=== PATIENT | male | born 1950 | race Caucasian/White ===

== ENCOUNTER → 2017-06-10 | Outpatient (CLI) | payer MEDICARE ==
[~2017-06-10] MED LIST: ALBU18HF INH; ALLO300T PO; AMOX1TAB12 PO; BUDE10.2 INH; CEPH-368 PO; CETI10CA PO; CETI10TA18 PO; CLOB15CR19 TP; CLON-364 PO; DULO60CA7 PO; ENOX100S5 SQ; ENOX40SY4 SC; FENT1PAT9 TD; FLUT16SP2 INH; FLUT1BLS INH; FURO80TA77 PO; GUAI-110 PO; IPRA0.2S35 INH; METH750T87 PO; MORP-52 PO; MULT-26 PO; MUPI15CR9 TP; OMEP40CA6 PO; OMNIPAQUE 350 MG/ML, 75ML BOTTLE ONE; OXYC15TA PO; POTA20TA14 PO; PRED1TAB PO; PREVASTATIN PO; SIMV40TA PO; TEST5GEL TD; TIOT18CA INH; TIZA4TAB PO; TRAZ100T15 PO; WARF5TAB PO; [UNRECOGNIZED DRUG - CODE] TP
== END | disposition home or self-care (01) ==
LOC: CFH 12:48
PROVIDERS: ATTEND Nurse Practitioner Family
DX: R59.9 Enlarged lymph nodes, unspecified (principal); R91.8 Other nonspecific abnormal finding of lung field; K44.9 Diaphragmatic hernia without obstruction or gangrene; R59.1 Generalized enlarged lymph nodes; J98.11 Atelectasis; R04.2 Hemoptysis
CPT/HCPCS: 71260; 82565; Q9967

== ENCOUNTER 2017-08-05 07:21 | Day surgery (SDC) | payer MEDICARE ==
[~2017-08-05] VITALS: Ht 177.8 cm; Wt 124.0 kg
[~2017-08-05 07:21] MED LIST changes: +CARB200T4 PO; +CARV6.2512 PO; +DIPH25CA61 PO; +EPINEPHRINE 1 MG/ML, 1ML ONE; +EPINEPHRINE TOPICAL SOLN 1 MG/ML, 30ML ONE; +FLUO20TA25 PO; +FLUT12HF2 INH; +LIDOCAINE/PF 1%, 30ML ONE; -OMNIPAQUE 350 MG/ML, 75ML BOTTLE ONE; +PRAV40TA2 PO; +oxygen NS
[2017-08-05] MEDS ORDERED: LACTATED RINGERS 1,000 ML IV SCH (07:44)
[2017-08-05 08:06] VITALS: BP 144/96
[2017-08-05] MEDS ORDERED: ONDANSETRON 2MG/ML, 2ML ONE (09:08)
[2017-08-05] MEDS ORDERED: DEXAMETHASONE 4 MG/ML, 1ML ONE (09:08)
[2017-08-05] MEDS ORDERED: CEFAZOLIN 1,000 MG ONE (09:08)
[2017-08-05] MEDS ORDERED: PROPOFOL 10 MG/ML, 50ML ONE (09:08)
[2017-08-05] MEDS ORDERED: FENTANYL PF 100 MCG/2ML ONE ×2 (09:10→10:28)
[2017-08-05] MEDS ORDERED: ONDANSETRON 2MG/ML, 2ML IVPush PRN (10:00)
[2017-08-05] MEDS ORDERED: OXYcodone 5 MG/5 ML ORAL.SOL UDC PO PRN (10:00)
[2017-08-05] MEDS ORDERED: HYDROmorphone 1 MG/ML, 1ML IV PRN (10:00)
[2017-08-05] MEDS ORDERED: hydrALAzine 20 MG/ML, 1ML IV PRN (10:00)
[2017-08-05] MEDS ORDERED: LABETALOL 5MG/ML, 20ML IV PRN (10:00)
[2017-08-05] MEDS ORDERED: OXYcodone 5 MG/5 ML ORAL.SOL UDC ONE (10:29)
[2017-08-05] MEDS: FENTANYL PF 100 MCG/2ML IV PRN ×2 (10:32→10:40)
== END 2017-08-05 12:25 ==
LOC: OUT 07:21
PROVIDERS: ATTEND Otolaryngology
DX: C01 Malignant neoplasm of base of tongue (principal); N18.9 Chronic kidney disease, unspecified; I12.9 Hypertensive chronic kidney disease with stage 1 through stage 4 chronic kidney disease, or unspecified chronic kidney disease; J44.9 Chronic obstructive pulmonary disease, unspecified; F32.9 Major depressive disorder, single episode, unspecified; F41.9 Anxiety disorder, unspecified; E78.00 Pure hypercholesterolemia, unspecified; I10 Essential (primary) hypertension; G43.909 Migraine, unspecified, not intractable, without status migrainosus; Z86.718 Personal history of other venous thrombosis and embolism; Z88.8 Allergy status to other drugs, medicaments and biological substances; Z91.09 Other allergy status, other than to drugs and biological substances
CPT/HCPCS: 31535; 36415; 85610; 88305; 88331; J0171; J0690; J1100; J2405; J2704; J3010; J3490

== ENCOUNTER → 2017-08-21 | Outpatient (CLI) | payer MEDICARE ==
[~2017-08-21] MED LIST changes: -EPINEPHRINE 1 MG/ML, 1ML ONE; -EPINEPHRINE TOPICAL SOLN 1 MG/ML, 30ML ONE; -LIDOCAINE/PF 1%, 30ML ONE
== END | disposition home or self-care (01) ==
LOC: ROC 10:23
PROVIDERS: ATTEND Radiology Radiation Oncology
DX: C01 Malignant neoplasm of base of tongue (principal); I48.91 Unspecified atrial fibrillation; F41.9 Anxiety disorder, unspecified; J44.9 Chronic obstructive pulmonary disease, unspecified; F32.9 Major depressive disorder, single episode, unspecified; K21.9 Gastro-esophageal reflux disease without esophagitis; E78.00 Pure hypercholesterolemia, unspecified; I12.9 Hypertensive chronic kidney disease with stage 1 through stage 4 chronic kidney disease, or unspecified chronic kidney disease; N18.9 Chronic kidney disease, unspecified; G43.909 Migraine, unspecified, not intractable, without status migrainosus; G47.30 Sleep apnea, unspecified; Z79.01 Long term (current) use of anticoagulants; Z87.891 Personal history of nicotine dependence
CPT/HCPCS: 99214; G0463

== ENCOUNTER 2017-09-08 17:14 | Inpatient (IN) | payer MEDICARE ==
[~2017-09-08] VITALS: Ht 177.8 cm; Wt 123.0 kg
[2017-09-08] MEDS ORDERED: SODIUM CHLORIDE 0.9% 1,000 ML IV ONE (17:21)
[2017-09-08] MEDS ORDERED: ONDANSETRON 2MG/ML, 2ML IVPush ONE (17:30)
[2017-09-08] MEDS ORDERED: SODIUM CHLORIDE FLUSH 10ML SYR IVF ONE (17:30)
[2017-09-08] MEDS ORDERED: HYDROmorphone 1 MG/ML, 1ML IVPush PRN (17:30)
[2017-09-08] MEDS ORDERED: HYDROmorphone 2 MG/ML, 1ML ONE ×2 (17:46→20:03)
[2017-09-08] MEDS ORDERED: ONDANSETRON 2MG/ML, 2ML ONE ×2 (17:47→20:03)
[2017-09-08 18:26] LABS: INTERNATIONAL NORMALIZED RATIO 2.27 (0.93-1.1); PROTHROMBIN TIME 23.2 Seconds (9.6-11.5)
[2017-09-08 18:28] LABS: ALANINE AMINOTRANSFERASE 19 U/L (12-78); ALBUMIN 3.3 g/dL (3.4-5.0); ANION GAP 9 mmol/L (5-15); CALCIUM 8.7 mg/dL (8.5-10.1); CHLORIDE 101 mmol/L (98-107)
[2017-09-08 18:33] LABS: ALKALINE PHOSPHATASE 75 U/L (45-117); BILIRUBIN,TOTAL 0.4 mg/dL (0.2-1.0)
[2017-09-08 18:54] LABS: MEAN CORPUSCULAR HEMOGLOBIN 19.3 pg (27.5-34.5); MEAN CORPUSCULAR VOLUME 67.2 fL (81-97); MEAN PLATELET VOLUME 8.2 fL (7.4-10.4); PLATELET COUNT 416 x10^3/uL (130-400); RED BLOOD COUNT 5.46 x10^6/uL (4.38-5.82); RED CELL DISTRIBUTION WIDTH 25.4 % (9.4-14.8)
[2017-09-08] MEDS ORDERED: IPRA3AMP INH (18:57)
[2017-09-08] MEDS ORDERED: ENOX80SY4 SQ (18:57)
[2017-09-08 18:59] LABS: HEMOGRAM NOTE RECHECKED; MEAN CORPUSCULAR HGB CONC 28.8 g/dL (33.2-36.2)
[2017-09-08] MEDS ORDERED: HYDR25CA PO (18:59)
[2017-09-08] MEDS ORDERED: METO2.5T PO (18:59)
[2017-09-08 19:00] LABS: MD YES
[2017-09-08 19:01] LABS: MICROSCOPIC NOT IND
[2017-09-08 19:03] LABS: ANISOCYTOSIS 2+; BANDS%(MANUAL) 36 % (0-7); HYPOCHROMIA 2+; LYMPH#(MANUAL) 1.48 x10^3/uL (1-3.4); LYMPHS% (MANUAL) 13 % (22-44); MICROCYTOSIS 2+; MONOS#(MANUAL) 1.37 x10^3/uL (0.3-2.7); MONOS% (MANUAL) 12 % (2-9); NRBC % (MANUAL) 3 % (0-1); POLYCHROMASIA 1+; SEG#(MANUAL) 4.45 x10^3/uL (1.8-6.8); SEGS% (MANUAL) 39 % (42-75)
[2017-09-08 19:04] LABS: <PLATELET ESTIMATE> ADEQUATE; <PLT MORPHOLOGY> NORMAL PLT MORPH
[2017-09-08 19:05] LABS: <WBC MORPHOLOGY> NORMAL
[2017-09-08 19:09] LABS: CULTURE INDICATED? NO
[2017-09-08] MEDS ORDERED: ONDANSETRON 2MG/ML, 2ML IVPush PRN ×2 (20:00→22:00)
[2017-09-08] MEDS ORDERED: HYDROmorphone 2 MG/ML, 1ML IVPush PRN (20:00)
[2017-09-08] MEDS ORDERED: SODIUM CHLORIDE FLUSH 10ML SYR IVF PRN (20:00)
[2017-09-08 21:30] VITALS: BP 119/77
[2017-09-08] MEDS ORDERED: METOLAZONE 2.5 MG TABLET PO PRN (22:00)
[2017-09-08] MEDS ORDERED: DIPHENHYDRAMINE 25 MG CAPSULE PO PRN (22:00)
[2017-09-08] MEDS ORDERED: LEVOFLOXACIN/PMX 750MG/150ML 150 ML IV SCH (22:00)
[2017-09-08] MEDS ORDERED: ENOXAPARIN 80 MG/0.8 ML SQ SCH (22:00)
[2017-09-08] MEDS: CARVEDILOL 6.25 MG TABLET PO SCH (22:23)
[2017-09-08] MEDS: ALLOPURINOL 300 MG TABLET PO SCH (22:23)
[2017-09-08] MEDS: PRAVASTATIN 40 MG TABLET PO SCH (22:23)
[2017-09-08] MEDS: SODIUM CHLORIDE 0.9% 1,000 ML IV SCH (22:23)
[2017-09-08] MEDS: CARBAMAZEPINE 200 MG TABLET PO SCH (22:23)
[2017-09-08] MEDS: WARFARIN 10 MG TABLET PO-COUM ONE ×2 (22:30→23:11)
[2017-09-08 22:55] LABS: HEMOGLOBIN A1C 5.5 % (4.2-6.3)
[2017-09-08] MEDS: morphine SULFATE 10 MG/ML, 1ML IVPush PRN (22:59)
[2017-09-08] MEDS: METRONIDAZOLE PMX 500MG/100ML 100 ML IV SCH (23:11)
[2017-09-08] MEDS: IPRATROPIUM 0.5 MG/2.5 ML INHA NPPB SCH (23:15)
[2017-09-09 01:16] VITALS: BP 112/74
[2017-09-09] MEDS: morphine SULFATE 10 MG/ML, 1ML IVPush PRN ×2 (03:01→08:24)
[2017-09-09] MEDS: IPRATROPIUM 0.5 MG/2.5 ML INHA NPPB SCH ×4 (03:34→22:30)
[2017-09-09] MEDS: ALBUTEROL SULFATE 2.5 MG/3 ML NPPB PRN (03:34)
[2017-09-09 04:54] LABS: CHLORIDE 102 mmol/L (98-107)
[2017-09-09 04:57] LABS: MEAN CORPUSCULAR HEMOGLOBIN 19.4 pg (27.5-34.5); MEAN CORPUSCULAR VOLUME 67.1 fL (81-97); MEAN PLATELET VOLUME 8.6 fL (7.4-10.4); PLATELET COUNT 430 x10^3/uL (130-400); RED CELL DISTRIBUTION WIDTH 25.6 % (9.4-14.8)
[2017-09-09 05:05] LABS: ALANINE AMINOTRANSFERASE 18 U/L (12-78); ALKALINE PHOSPHATASE 65 U/L (45-117); ANION GAP 5 mmol/L (5-15); BILIRUBIN,TOTAL 0.3 mg/dL (0.2-1.0); CALCIUM 8.2 mg/dL (8.5-10.1); CHOL/HDL RATIO 2.8; CHOLESTEROL, TOTAL 142 mg/dL (140-239); CREATININE 0.79 mg/dL (0.7-1.3); HDL CHOL % 35 % (26-37); HDL CHOLESTEROL (DIRECT) 50 mg/dL (40-60); LDL CHOLESTEROL,CALCULATED 63 mg/dL (54-169); LDL/HDL RATIO 1.3 (0.5-3.0); TOTAL PROTEIN 6.3 g/dL (6.4-8.2); TRIGLYCERIDES 145 mg/dL (50-200); VLDL CHOLESTEROL 29 mg/dL (0-25)
[2017-09-09 05:48] LABS: MD YES
[2017-09-09 05:53] LABS: ANISOCYTOSIS 2+; BAND#(MANUAL) 1.67 x10^3/uL; BANDS%(MANUAL) 14 % (0-7); HYPOCHROMIA 2+; LYMPH#(MANUAL) 2.02 x10^3/uL (1-3.4); LYMPHS% (MANUAL) 17 % (22-44); MICROCYTOSIS 2+; MONOS#(MANUAL) 1.43 x10^3/uL (0.3-2.7); MONOS% (MANUAL) 12 % (2-9); NRBC % (MANUAL) 7 % (0-1); SEG#(MANUAL) 6.78 x10^3/uL (1.8-6.8); SEGS% (MANUAL) 57 % (42-75)
[2017-09-09 05:54] LABS: OVALOCYTES 1+; TARGET CELLS 2+
[2017-09-09 05:57] LABS: <PLATELET ESTIMATE> ADEQUATE
[2017-09-09 05:58] LABS: ACANTHOCYTES 1+
[2017-09-09 05:59] LABS: LARGE PLATELETS 1+; POLYCHROMASIA 1+
[2017-09-09] MEDS: METRONIDAZOLE PMX 500MG/100ML 100 ML IV SCH (06:32)
[2017-09-09 07:59] VITALS: BP 107/64
[2017-09-09] MEDS: SODIUM CHLORIDE 0.9% 1,000 ML IV SCH (08:00)
[2017-09-09] MEDS: CARBAMAZEPINE 200 MG TABLET PO SCH ×3 (08:19→20:49)
[2017-09-09] MEDS: POTASSIUM CHLORIDE 20 MEQ TAB.ER.PRT PO SCH ×2 (08:19→12:44)
[2017-09-09] MEDS: DULOXETINE 30 MG CAPSULE.DR PO SCH ×2 (08:19→12:44)
[2017-09-09] MEDS: CARVEDILOL 6.25 MG TABLET PO SCH ×3 (08:19→20:49)
[2017-09-09] MEDS: FLUOXETINE 20 MG CAPSULE PO SCH ×2 (08:19→12:44)
[2017-09-09] MEDS: OMEPRAZOLE 20 MG CAPSULE.DR PO SCH ×2 (08:19→12:43)
[2017-09-09] MEDS: TESTOSTERONE 5 GM TD SCH (08:20)
[2017-09-09] MEDS: ENOXAPARIN 120MG/0.8ML SQ SCH ×2 (12:44→23:53)
[2017-09-09 13:49] VITALS: BP 125/64
[2017-09-09 19:20] VITALS: BP 118/57
[2017-09-09] MEDS: PRAVASTATIN 40 MG TABLET PO SCH (20:49)
[2017-09-09] MEDS: ALLOPURINOL 300 MG TABLET PO SCH (20:50)
[2017-09-09] MEDS: ACETAMINOPHEN 325 MG TABLET PO PRN (23:51)
[2017-09-10 01:28] VITALS: BP 124/66
[2017-09-10] MEDS: IPRATROPIUM 0.5 MG/2.5 ML INHA NPPB SCH ×5 (04:30→23:45)
[2017-09-10 05:14] LABS: ABSOLUTE RETICS # 0.081 x10^6/uL (0.5-1.5); RED BLOOD COUNT 4.76 x10^6/uL (4.38-5.82); RETICULOCYTE COUNT % 1.7 % (0.5-1.5)
[2017-09-10 05:17] LABS: MEAN CORPUSCULAR HEMOGLOBIN 19.4 pg (27.5-34.5); MEAN CORPUSCULAR VOLUME 67.9 fL (81-97); MEAN PLATELET VOLUME 8.9 fL (7.4-10.4); PLATELET COUNT 425 x10^3/uL (130-400); RED BLOOD COUNT 4.77 x10^6/uL (4.38-5.82); RED CELL DISTRIBUTION WIDTH 25.8 % (9.4-14.8)
[2017-09-10 05:25] LABS: ALBUMIN 2.8 g/dL (3.4-5.0); ANION GAP 7 mmol/L (5-15); CALCIUM 8.7 mg/dL (8.5-10.1); CHLORIDE 101 mmol/L (98-107)
[2017-09-10 05:32] LABS: % IRON SATURATION 7 % (20-55); CREATININE 0.52 mg/dL (0.7-1.3); IRON LEVEL 23 mcg/dL (65-175); TOTAL IRON BINDING CAPACITY 352 mcg/dL (250-450)
[2017-09-10 06:22] LABS: MD YES
[2017-09-10] MEDS: ACETAMINOPHEN 325 MG TABLET PO PRN (06:26)
[2017-09-10 06:28] LABS: LYMPH#(MANUAL) 0.62 x10^3/uL (1-3.4); LYMPHS% (MANUAL) 6 % (22-44); MONOS% (MANUAL) 26 % (2-9); SEG#(MANUAL) 7.07 x10^3/uL (1.8-6.8); SEGS% (MANUAL) 68 % (42-75)
[2017-09-10 06:29] LABS: ANISOCYTOSIS 2+; HYPOCHROMIA 1+; MICROCYTOSIS 2+; OVALOCYTES 1+; SPHEROCYTES 1+
[2017-09-10 06:30] LABS: <PLATELET ESTIMATE> ADEQUATE; LARGE PLATELETS 1+; TARGET CELLS 1+
[2017-09-10 06:32] LABS: MEAN CORPUSCULAR HGB CONC 28.8 g/dL (33.2-36.2)
[2017-09-10 06:58] VITALS: BP 129/82
[2017-09-10] MEDS: ALBUTEROL SULFATE 2.5 MG/3 ML NPPB PRN ×4 (08:43→23:23)
[2017-09-10] MEDS: OMEPRAZOLE 20 MG CAPSULE.DR PO SCH (09:47)
[2017-09-10] MEDS: POTASSIUM CHLORIDE 20 MEQ TAB.ER.PRT PO SCH (09:48)
[2017-09-10] MEDS: DULOXETINE 30 MG CAPSULE.DR PO SCH (09:49)
[2017-09-10] MEDS: CARVEDILOL 6.25 MG TABLET PO SCH ×2 (09:49→20:43)
[2017-09-10] MEDS: CARBAMAZEPINE 200 MG TABLET PO SCH ×2 (09:49→20:43)
[2017-09-10] MEDS: FLUOXETINE 20 MG CAPSULE PO SCH (09:49)
[2017-09-10] MEDS: TESTOSTERONE 5 GM TD SCH (09:51)
[2017-09-10] MEDS: FUROSEMIDE 40 MG/4 ML IV SCH (09:55)
[2017-09-10] MEDS: HYDROcodone/APAP 10/325 MG TABLET PO PRN ×3 (11:39→20:43)
[2017-09-10] MEDS: ENOXAPARIN 120MG/0.8ML SQ SCH ×2 (12:49→22:30)
[2017-09-10 13:43] VITALS: BP 118/76
[2017-09-10] MEDS: ONDANSETRON 2MG/ML, 2ML IVPush PRN (15:03)
[2017-09-10] MEDS ORDERED: IPRATROPIUM 0.5 MG/2.5 ML INHA NPPB PRN (17:00)
[2017-09-10] MEDS ORDERED: PHYTONADIONE 10 MG in SODIUM CHLORIDE 0.9% 50 ML IV ONE (19:00)
[2017-09-10] MEDS: ALLOPURINOL 300 MG TABLET PO SCH (20:43)
[2017-09-10 20:44] VITALS: BP 124/82
[2017-09-10] MEDS: PRAVASTATIN 40 MG TABLET PO SCH (22:34)
[2017-09-11 01:05] VITALS: BP 112/69
[2017-09-11] MEDS: HYDROcodone/APAP 10/325 MG TABLET PO PRN ×5 (01:08→20:23)
[2017-09-11 03:48] LABS: INTERNATIONAL NORMALIZED RATIO 1.28 (0.93-1.1); PROTHROMBIN TIME 13.2 Seconds (9.6-11.5)
[2017-09-11 07:20] VITALS: BP 131/81
[2017-09-11] MEDS: CARBAMAZEPINE 200 MG TABLET PO SCH ×2 (08:04→20:23)
[2017-09-11] MEDS: OMEPRAZOLE 20 MG CAPSULE.DR PO SCH (08:04)
[2017-09-11] MEDS: POTASSIUM CHLORIDE 20 MEQ TAB.ER.PRT PO SCH (08:04)
[2017-09-11] MEDS: DULOXETINE 30 MG CAPSULE.DR PO SCH (08:04)
[2017-09-11] MEDS: FLUOXETINE 20 MG CAPSULE PO SCH (08:04)
[2017-09-11] MEDS: CARVEDILOL 6.25 MG TABLET PO SCH ×2 (08:05→20:22)
[2017-09-11] MEDS: TESTOSTERONE 5 GM TD SCH (08:05)
[2017-09-11] MEDS: FUROSEMIDE 40 MG/4 ML IV SCH (08:05)
[2017-09-11] MEDS: ONDANSETRON 2MG/ML, 2ML IVPush PRN ×2 (09:34→23:54)
[2017-09-11] MEDS ORDERED: FUROSEMIDE 40 MG/4 ML IV ONE (12:30)
[2017-09-11] MEDS: ENOXAPARIN 120MG/0.8ML SQ SCH (12:30)
[2017-09-11 12:53] LABS: ALBUMIN 2.9 g/dL (3.4-5.0); ANION GAP 5 mmol/L (5-15); CALCIUM 8.2 mg/dL (8.5-10.1); CHLORIDE 103 mmol/L (98-107); CREATININE 0.46 mg/dL (0.7-1.3)
[2017-09-11] MEDS ORDERED: LIDOCAINE 1%, 10ML ONE (12:54)
[2017-09-11 13:28] LABS: MD YES; MEAN CORPUSCULAR HEMOGLOBIN 19.5 pg (27.5-34.5); MEAN PLATELET VOLUME 8.8 fL (7.4-10.4); PLATELET COUNT 418 x10^3/uL (130-400); RED BLOOD COUNT 4.67 x10^6/uL (4.38-5.82); RED CELL DISTRIBUTION WIDTH 25.8 % (9.4-14.8)
[2017-09-11 13:29] LABS: MEAN CORPUSCULAR HGB CONC 28.7 g/dL (33.2-36.2)
[2017-09-11 13:36] LABS: BAND#(MANUAL) 0.14 x10^3/uL; BANDS%(MANUAL) 2 % (0-7); EOS#(MANUAL) 0.14 x10^3/uL (0.0-0.4); EOS% (MANUAL) 2 % (1-7); LYMPH#(MANUAL) 1.33 x10^3/uL (1-3.4); LYMPHS% (MANUAL) 19 % (22-44); MONOS#(MANUAL) 1.89 x10^3/uL (0.3-2.7); MONOS% (MANUAL) 27 % (2-9); NRBC % (MANUAL) 23 % (0-1); REACTIVE LYMPHS # (MANUAL) 0.14 x10^3/uL (0-0); REACTIVE LYMPHS % (MANUAL) 2 % (0-0); SEG#(MANUAL) 3.36 x10^3/uL (1.8-6.8); SEGS% (MANUAL) 48 % (42-75)
[2017-09-11 13:37] LABS: ANISOCYTOSIS 2+; HYPOCHROMIA 1+; MICROCYTOSIS 2+; OVALOCYTES 1+; SPHEROCYTES 1+
[2017-09-11 13:38] LABS: POLYCHROMASIA 1+; SCHISTOCYTES 1+; TARGET CELLS 2+
[2017-09-11 13:39] LABS: <PLATELET ESTIMATE> ADEQUATE; LARGE PLATELETS 1+
[2017-09-11] MEDS ORDERED: LIDOCAINE 2%, 20ML ONE (14:12)
[2017-09-11 15:45] VITALS: BP 118/78
[2017-09-11 18:31] VITALS: BP 128/78
[2017-09-11] MEDS: ALLOPURINOL 300 MG TABLET PO SCH (20:23)
[2017-09-11] MEDS: PRAVASTATIN 40 MG TABLET PO SCH (20:23)
[2017-09-12] MEDS: HYDROcodone/APAP 10/325 MG TABLET PO PRN ×6 (00:35→20:36)
[2017-09-12] MEDS: ENOXAPARIN 120MG/0.8ML SQ SCH ×2 (00:35→12:08)
[2017-09-12 02:13] VITALS: BP 124/75
[2017-09-12] MEDS: FUROSEMIDE 40 MG/4 ML IV SCH ×3 (04:14→20:37)
[2017-09-12 07:05] VITALS: BP 119/75
[2017-09-12] MEDS: OMEPRAZOLE 20 MG CAPSULE.DR PO SCH (07:55)
[2017-09-12] MEDS: POTASSIUM CHLORIDE 20 MEQ TAB.ER.PRT PO SCH (07:55)
[2017-09-12] MEDS: TESTOSTERONE 5 GM TD SCH (09:00)
[2017-09-12] MEDS: CARBAMAZEPINE 200 MG TABLET PO SCH ×2 (09:35→20:37)
[2017-09-12] MEDS: DULOXETINE 30 MG CAPSULE.DR PO SCH (09:35)
[2017-09-12] MEDS: FLUOXETINE 20 MG CAPSULE PO SCH (09:35)
[2017-09-12] MEDS: CARVEDILOL 6.25 MG TABLET PO SCH ×2 (09:35→20:37)
[2017-09-12] MEDS ORDERED: POLYETHYLENE GLYCOL 17 GM PACKET PO ONE (11:30)
[2017-09-12] MEDS ORDERED: GLYCERIN ADULT SUPP PR PRN (11:30)
[2017-09-12] MEDS ORDERED: MAGNESIUM CITRATE 300ML ORAL SOL PO PRN (11:30)
[2017-09-12] MEDS ORDERED: SENNA/DOCUSATE TABLET PO PRN (11:30)
[2017-09-12 13:59] VITALS: BP 111/70
[2017-09-12 17:30] LABS: OCCULT BLOOD POSITIVE (NEGATIVE)
[2017-09-12 20:24] VITALS: BP 122/76
[2017-09-12] MEDS: PRAVASTATIN 40 MG TABLET PO SCH (20:36)
[2017-09-12] MEDS: ALLOPURINOL 300 MG TABLET PO SCH (20:37)
[2017-09-13] VITALS: BP 102/64
[2017-09-13] MEDS: HYDROcodone/APAP 10/325 MG TABLET PO PRN ×3 (00:23→09:33)
[2017-09-13] MEDS: ENOXAPARIN 120MG/0.8ML SQ SCH (00:23)
[2017-09-13] MEDS: ONDANSETRON 2MG/ML, 2ML IVPush PRN (03:14)
[2017-09-13] MEDS: POTASSIUM CHLORIDE 20 MEQ TAB.ER.PRT PO SCH (07:27)
[2017-09-13] MEDS: OMEPRAZOLE 20 MG CAPSULE.DR PO SCH (07:27)
[2017-09-13 07:44] VITALS: BP 123/86
[2017-09-13] MEDS: TESTOSTERONE 5 GM TD SCH (09:00)
[2017-09-13] MEDS: CARVEDILOL 6.25 MG TABLET PO SCH (09:34)
[2017-09-13] MEDS: CARBAMAZEPINE 200 MG TABLET PO SCH (09:34)
[2017-09-13] MEDS: FLUOXETINE 20 MG CAPSULE PO SCH (09:35)
[2017-09-13] MEDS: DULOXETINE 30 MG CAPSULE.DR PO SCH (09:35)
[2017-09-13] MEDS: FUROSEMIDE 40 MG/4 ML IV SCH (09:36)
== END 2017-09-13 10:30 | disposition still patient (30) | DRG 388 ==
LOC: ED 20:21 → EDIP 21:03 → 3NE 21:28 → 3NW 09-09 15:08
PROVIDERS: ADMIT Surgery; ATTEND Surgery
PROC: 02H633Z Insertion of Infusion Device into Right Atrium, Percutaneous Approach (ICD-10-PCS; principal; 2017-09-11)
PROC: B2141ZZ Fluoroscopy of Right Heart using Low Osmolar Contrast (ICD-10-PCS; 2017-09-11)
PROC: B244ZZZ Ultrasonography of Right Heart (ICD-10-PCS; 2017-09-11)
PROC: 03JY3ZZ Inspection of Upper Artery, Percutaneous Approach (ICD-10-PCS; 2017-09-11)
PROC: 0JH60WZ Insertion of Totally Implantable Vascular Access Device into Chest Subcutaneous Tissue and Fascia, Open Approach (ICD-10-PCS; 2017-09-11)
DX: K56.600 Partial intestinal obstruction, unspecified as to cause (principal); I50.31 Acute diastolic (congestive) heart failure; J96.11 Chronic respiratory failure with hypoxia; I27.20 Pulmonary hypertension, unspecified; E83.51 Hypocalcemia; Z99.81 Dependence on supplemental oxygen; I11.0 Hypertensive heart disease with heart failure; D50.9 Iron deficiency anemia, unspecified; D72.825 Bandemia; K66.0 Peritoneal adhesions (postprocedural) (postinfection); E87.6 Hypokalemia; G47.33 Obstructive sleep apnea (adult) (pediatric); G89.29 Other chronic pain; I25.10 Atherosclerotic heart disease of native coronary artery without angina pectoris; J44.9 Chronic obstructive pulmonary disease, unspecified; I73.9 Peripheral vascular disease, unspecified; M54.9 Dorsalgia, unspecified; C02.9 Malignant neoplasm of tongue, unspecified; Z79.899 Other long term (current) drug therapy; Z88.8 Allergy status to other drugs, medicaments and biological substances; Z79.01 Long term (current) use of anticoagulants; Z79.891 Long term (current) use of opiate analgesic; Z85.819 Personal history of malignant neoplasm of unspecified site of lip, oral cavity, and pharynx; Z87.891 Personal history of nicotine dependence; Z90.81 Acquired absence of spleen; Z87.01 Personal history of pneumonia (recurrent)
CPT/HCPCS: 36415; 36561; 71045; 71046; 74177; 76937; 77001; 80048; 80053; 80061; 81003; 82040; 82272; 82728; 83036; 83540; 83550; 83605; 83690; 83735; 83880; 84100; 84443; 84484; 85025; 85045; 85610; 85730; 87040; 93005; 94640; 96374; 96375; 96376; 99156; 99157; C1894; J0690; J1170; J1650; J1940; J1956; J2250; J2405; J3010; J3430; J3490; J7613; J7644; C1769; C1788; J1642; J2270; J2310; J7030; Q0177

== ENCOUNTER → 2017-10-07 | Outpatient (CLI) | payer MEDICARE ==
[~2017-10-07] MED LIST changes: +ALBU8.5H8 INH; +ENOX80SY4 SQ; -FLUT16SP2 INH; +FLUT16SP2 NS; +HYDR25CA PO; +IPRA3AMP INH; +METO2.5T PO; +WARF10TA PO; +morphine pump
== END | disposition home or self-care (01) ==
LOC: STAR 11:01
PROVIDERS: ATTEND Surgery
DX: Z01.818 Encounter for other preprocedural examination (principal); R94.31 Abnormal electrocardiogram [ECG] [EKG]
CPT/HCPCS: 93005

== ENCOUNTER 2017-10-13 06:05 | Day surgery (SDC) | payer MEDICARE ==
[~2017-10-13] VITALS: Ht 177.8 cm; Wt 125.4 kg
[~2017-10-13 06:05] MED LIST changes: +BUPIVACAINE/PF 0.5% ONE; +EPINEPHRINE 1 MG/ML, 1ML ONE
[2017-10-13] MEDS ORDERED: LACTATED RINGERS 1,000 ML IV SCH (06:59)
[2017-10-13 07:00] VITALS: BP 128/81
[2017-10-13] MEDS ORDERED: FENTANYL PF 100 MCG/2ML ONE (07:58)
[2017-10-13 08:57] LABS: INTERNATIONAL NORMALIZED RATIO 1.07 (0.93-1.1)
[2017-10-13] MEDS ORDERED: LIDOCAINE GEL 2%, 5ML ONE (09:19)
[2017-10-13] MEDS ORDERED: ONDANSETRON 2MG/ML, 2ML ONE (09:53)
[2017-10-13] MEDS ORDERED: ROCURONIUM 10 MG/ML,10ML ONE (09:53)
[2017-10-13] MEDS ORDERED: SUCCINYLCHOLINE 20 MG/ML, 10ML ONE (09:53)
[2017-10-13] MEDS ORDERED: PROPOFOL 10 MG/ML, 20ML ONE (09:53)
[2017-10-13] MEDS ORDERED: GLYCOPYRROLATE 0.2MG/1ML, 5ML ONE (09:53)
[2017-10-13] MEDS ORDERED: DEXAMETHASONE 4 MG/ML, 1ML ONE (09:53)
[2017-10-13] MEDS ORDERED: CEFAZOLIN 1,000 MG ONE ×2 (09:53)
[2017-10-13] MEDS ORDERED: NEOSTIGMINE 1 MG/ML, 10ML ONE (09:53)
[2017-10-13] MEDS ORDERED: hydrALAzine 20 MG/ML, 1ML IV PRN (10:00)
[2017-10-13] MEDS ORDERED: ONDANSETRON 2MG/ML, 2ML IVPush PRN (10:00)
[2017-10-13] MEDS ORDERED: ALBUTEROL SULFATE 2.5 MG/3 ML NPPB PRN (10:00)
[2017-10-13] MEDS ORDERED: ACETAMINOPHEN 325 MG TABLET PO PRN (10:00)
[2017-10-13] MEDS ORDERED: FENTANYL PF 100 MCG/2ML IV PRN (10:00)
[2017-10-13] MEDS ORDERED: METOPROLOL 1 MG/ML, 5ML IV PRN (10:00)
[2017-10-13] MEDS ORDERED: MEPERIDINE/PF 25MG/0.5ML IVPush PRN (10:00)
[2017-10-13] MEDS ORDERED: MIDAZOLAM 1 MG/ML, 2ML IV PRN (10:00)
[2017-10-13] MEDS ORDERED: ALBUTEROL/IPRATROPIUM 2.5MG/0.5MG, 3 ML NPPB PRN (10:00)
[2017-10-13] MEDS ORDERED: OXYcodone 5 MG/5 ML ORAL.SOL UDC PO PRN (10:00)
[2017-10-13] MEDS ORDERED: HYDROmorphone 2 MG/ML, 1ML ONE (10:29)
[2017-10-13] MEDS ORDERED: OXYcodone 5 MG/5 ML ORAL.SOL UDC ONE (10:29)
[2017-10-13] MEDS ORDERED: ACETAMINOPHEN 650 MG/20.3 ML UDC ONE (10:29)
[2017-10-13] MEDS: HYDROmorphone 1 MG/ML, 1ML IV PRN ×3 (10:33→10:48)
[2017-10-13] MEDS ORDERED: morphine SULFATE 10 MG/ML, 1ML IVPush PRN (13:00)
== END 2017-10-13 14:53 ==
LOC: OUT 06:05
PROVIDERS: ATTEND Surgery
DX: C01 Malignant neoplasm of base of tongue (principal); J44.9 Chronic obstructive pulmonary disease, unspecified; G89.29 Other chronic pain; G47.33 Obstructive sleep apnea (adult) (pediatric); I10 Essential (primary) hypertension; Z87.39 Personal history of other diseases of the musculoskeletal system and connective tissue; Z88.8 Allergy status to other drugs, medicaments and biological substances; Z90.81 Acquired absence of spleen; Z79.01 Long term (current) use of anticoagulants
CPT/HCPCS: 36415; 43830; 85610; J0171; J0330; J0690; J1100; J1170; J2270; J2405; J2704; J2710; J3010; J3490; J7120; B4087

== ENCOUNTER 2017-10-31 10:19 | Inpatient (IN) | payer MEDICARE ==
[~2017-10-31] VITALS: Ht 177.8 cm; Wt 131.8 kg
[~2017-10-31 10:19] MED LIST changes: -BUPIVACAINE/PF 0.5% ONE; -EPINEPHRINE 1 MG/ML, 1ML ONE
[2017-10-31 11:44] LABS: ANION GAP 8 mmol/L (5-15); CALCIUM 8.8 mg/dL (8.5-10.1); CHLORIDE 97 mmol/L (98-107)
[2017-10-31 11:45] LABS: CREATININE 1.22 mg/dL (0.7-1.3)
[2017-10-31] MEDS ORDERED: SODIUM CHLORIDE 0.9% 1,000 ML IV ONE (11:51)
[2017-10-31 11:58] LABS: MD YES; MEAN CORPUSCULAR HEMOGLOBIN 19.5 pg (27.5-34.5); MEAN CORPUSCULAR VOLUME 67.8 fL (81-97); MEAN PLATELET VOLUME 8.5 fL (7.4-10.4); PLATELET COUNT 536 x10^3/uL (130-400); RED BLOOD COUNT 4.74 x10^6/uL (4.38-5.82)
[2017-10-31 12:00] LABS: MEAN CORPUSCULAR HGB CONC 28.7 g/dL (33.2-36.2)
[2017-10-31] MEDS ORDERED: MORPHINE SULFATE 4 MG/ML, 1ML IVPush ONE ×2 (12:00→14:30)
[2017-10-31] MEDS ORDERED: SODIUM CHLORIDE FLUSH 10ML SYR IVF ONE (12:00)
[2017-10-31] MEDS ORDERED: ONDANSETRON 2MG/ML, 2ML IVPush ONE (12:00)
[2017-10-31 12:03] LABS: LYMPH#(MANUAL) 0.21 x10^3/uL (1-3.4); LYMPHS% (MANUAL) 2 % (22-44); MONOS#(MANUAL) 0.64 x10^3/uL (0.3-2.7); MONOS% (MANUAL) 6 % (2-9); NRBC % (MANUAL) 8 % (0-1); SEG#(MANUAL) 9.75 x10^3/uL (1.8-6.8); SEGS% (MANUAL) 92 % (42-75)
[2017-10-31 12:09] LABS: ANISOCYTOSIS 3+; HOWELL-JOLLY BODIES 1+; HYPOCHROMIA 1+; MICROCYTOSIS 2+; OVALOCYTES 1+; PAPPENHEIMER BODIES 1+; SCHISTOCYTES 1+; SPHEROCYTES 1+; TARGET CELLS 1+
[2017-10-31 12:10] LABS: <PLATELET ESTIMATE> INCREASED; <PLT MORPHOLOGY> NORMAL PLT MORPH
[2017-10-31 12:12] LABS: ACANTHOCYTES 1+
[2017-10-31 12:27] LABS: INTERNATIONAL NORMALIZED RATIO 1.87 (0.93-1.1)
[2017-10-31] MEDS ORDERED: MORPHINE SULFATE 4 MG/ML, 1ML ONE ×2 (12:37→14:33)
[2017-10-31] MEDS ORDERED: ONDANSETRON 2MG/ML, 2ML ONE (12:37)
[2017-10-31] MEDS ORDERED: OMNIPAQUE 350 MG/ML, 100ML BOTTLE ONE (14:21)
[2017-10-31] MEDS ORDERED: AMPICILLIN/SULBACTAM 3 GM in SODIUM CHLORIDE 0.9% 100 ML IV ONE (14:30)
[2017-10-31] MEDS ORDERED: LABETALOL 5MG/ML, 20ML IVPush PRN (16:00)
[2017-10-31] MEDS ORDERED: ONDANSETRON 2MG/ML, 2ML IVPush PRN (16:00)
[2017-10-31] MEDS ORDERED: POLYETHYLENE GLYCOL 17 GM PACKET PO PRN (16:00)
[2017-10-31] MEDS ORDERED: ONDANSETRON ODT 4 MG PO PRN (16:00)
[2017-10-31] MEDS ORDERED: DEXAMETHASONE 4 MG/ML, 1ML IVPush ONE (16:30)
[2017-10-31 16:54] LABS: ALANINE AMINOTRANSFERASE 14 U/L (12-78); ALBUMIN 3.2 g/dL (3.4-5.0); ANION GAP 9 mmol/L (5-15); CALCIUM 9.1 mg/dL (8.5-10.1); CHLORIDE 96 mmol/L (98-107); CREATININE 1.09 mg/dL (0.7-1.3)
[2017-10-31 16:56] LABS: ALKALINE PHOSPHATASE 81 U/L (45-117); BILIRUBIN,TOTAL 0.4 mg/dL (0.2-1.0); TOTAL PROTEIN 7.4 g/dL (6.4-8.2)
[2017-10-31 16:57] VITALS: BP 143/87
[2017-10-31 17:19] LABS: MEAN CORPUSCULAR HEMOGLOBIN 19.9 pg (27.5-34.5); MEAN CORPUSCULAR VOLUME 68.3 fL (81-97); MEAN PLATELET VOLUME 8.7 fL (7.4-10.4); PLATELET COUNT 518 x10^3/uL (130-400); RED BLOOD COUNT 4.66 x10^6/uL (4.38-5.82); RED CELL DISTRIBUTION WIDTH 27.5 % (9.4-14.8)
[2017-10-31 17:20] LABS: HEMOGRAM NOTE RECHECKED; MEAN CORPUSCULAR HGB CONC 29.1 g/dL (33.2-36.2)
[2017-10-31 17:21] LABS: MD YES
[2017-10-31 17:25] LABS: BASOS#(MANUAL) 0.14 x10^3/uL (0-0.1); BASOS% (MANUAL) 1 % (0-1); LYMPHS% (MANUAL) 8 % (22-44); MONOS#(MANUAL) 1.79 x10^3/uL (0.3-2.7); MONOS% (MANUAL) 13 % (2-9); NRBC % (MANUAL) 20 % (0-1); SEG#(MANUAL) 10.76 x10^3/uL (1.8-6.8); SEGS% (MANUAL) 78 % (42-75)
[2017-10-31 17:27] LABS: ANISOCYTOSIS 3+; HYPOCHROMIA 1+; MICROCYTOSIS 2+; OVALOCYTES 1+; SCHISTOCYTES 1+; SPHEROCYTES 1+
[2017-10-31 17:29] LABS: <PLATELET ESTIMATE> INCREASED
[2017-10-31 17:30] LABS: LARGE PLATELETS 1+
[2017-10-31] MEDS ORDERED: ALBUTEROL/IPRATROPIUM 2.5MG/0.5MG, 3 ML NPPB PRN (17:30)
[2017-10-31] MEDS ORDERED: RACEPINEPHRINE INH 2.25%, 0.5ML NPPB PRN (17:30)
[2017-10-31 17:31] LABS: TARGET CELLS 2+
[2017-10-31] MEDS: morphine SULFATE 10 MG/ML, 1ML IVPush PRN ×2 (17:51→21:36)
[2017-10-31] MEDS: SODIUM CHLORIDE 0.9% 1,000 ML IV SCH ×2 (17:52→20:40)
[2017-10-31] MEDS: DEXAMETHASONE 4 MG/ML, 1ML IVPush SCH ×2 (17:54→23:24)
[2017-10-31 18:42] VITALS: BP 137/77
[2017-10-31] MEDS: IPRATROPIUM 0.5 MG/2.5 ML INHA NPPB SCH (20:24)
[2017-10-31] MEDS: HYDROcodone/APAP 5/325 TABLET PO PRN (20:39)
[2017-10-31] MEDS: AMPICILLIN/SULBACTAM 3 GM in SODIUM CHLORIDE 0.9% 100 ML IV SCH (20:39)
[2017-10-31] MEDS ORDERED: FAMOTIDINE 20 MG/2 ML IVPush SCH (21:00)
[2017-10-31] MEDS ORDERED: WARFARIN 10 MG TABLET PO-COUM ONE (22:30)
[2017-10-31] MEDS ORDERED: ALBUTEROL SULFATE 2.5 MG/3 ML NPPB PRN (22:30)
[2017-10-31] MEDS ORDERED: WARFARIN 1 MG TABLET PO-COUM ONE (22:30)
[2017-10-31] MEDS ORDERED: MAGNESIUM SULFATE PMX 2GM/50ML 50 ML IV ONE (22:30)
[2017-10-31] MEDS ORDERED: TIZANIDINE 4MG TABLET PO PRN (22:30)
[2017-10-31] MEDS ORDERED: HEPARIN 5,000 UNITS/ML, 1ML IV ONE (23:30)
[2017-10-31 23:50] LABS: MEAN CORPUSCULAR HEMOGLOBIN 19.7 pg (27.5-34.5); MEAN CORPUSCULAR VOLUME 67.7 fL (81-97); MEAN PLATELET VOLUME 8.6 fL (7.4-10.4); PLATELET COUNT 488 x10^3/uL (130-400); RED BLOOD COUNT 4.48 x10^6/uL (4.38-5.82)
[2017-11-01 00:14] LABS: MD YES
[2017-11-01 00:20] LABS: LYMPHS% (MANUAL) 3 % (22-44); METAMYELOCYTES# (MANUAL) 0.13 x10^3/uL (0-0); METAMYELOCYTES% (MANUAL) 1 % (0-1); MONOS% (MANUAL) 3 % (2-9); NRBC % (MANUAL) 14 % (0-1); SEGS% (MANUAL) 93 % (42-75)
[2017-11-01 00:23] LABS: ANISOCYTOSIS 3+; HYPOCHROMIA 1+; MICROCYTOSIS 2+
[2017-11-01 00:24] LABS: OVALOCYTES 1+; SCHISTOCYTES 1+; SPHEROCYTES 1+
[2017-11-01 00:25] LABS: <PLATELET ESTIMATE> INCREASED; TARGET CELLS 2+
[2017-11-01 00:26] LABS: LARGE PLATELETS 1+
[2017-11-01 00:27] LABS: MEAN CORPUSCULAR HGB CONC 29.1 g/dL (33.2-36.2)
[2017-11-01] MEDS: HEPARIN 25,000 UNITS/500ML PMX 500 ML IV PRN ×2 (00:45→20:04)
[2017-11-01] MEDS: morphine SULFATE 10 MG/ML, 1ML IVPush PRN ×7 (00:50→21:43)
[2017-11-01 01:37] VITALS: BP 138/76
[2017-11-01] MEDS: AMPICILLIN/SULBACTAM 3 GM in SODIUM CHLORIDE 0.9% 100 ML IV SCH ×4 (02:45→20:30)
[2017-11-01] MEDS: IPRATROPIUM 0.5 MG/2.5 ML INHA NPPB SCH ×4 (02:57→11:00)
[2017-11-01] MEDS: DEXAMETHASONE 4 MG/ML, 1ML IVPush SCH ×4 (05:12→22:43)
[2017-11-01 06:33] VITALS: BP 135/80
[2017-11-01] MEDS: SODIUM CHLORIDE 0.9% 1,000 ML IV SCH ×3 (06:48→20:30)
[2017-11-01 07:14] LABS: ALANINE AMINOTRANSFERASE 11 U/L (12-78); ALBUMIN 2.7 g/dL (3.4-5.0); ANION GAP 7 mmol/L (5-15); CALCIUM 8.4 mg/dL (8.5-10.1); CHLORIDE 100 mmol/L (98-107); CREATININE 0.76 mg/dL (0.7-1.3)
[2017-11-01 07:17] LABS: ALKALINE PHOSPHATASE 69 U/L (45-117); BILIRUBIN,TOTAL 0.4 mg/dL (0.2-1.0); TOTAL PROTEIN 6.2 g/dL (6.4-8.2)
[2017-11-01 07:32] LABS: MEAN CORPUSCULAR HEMOGLOBIN 19.6 pg (27.5-34.5); MEAN CORPUSCULAR VOLUME 68.3 fL (81-97); MEAN PLATELET VOLUME 8.5 fL (7.4-10.4); PLATELET COUNT 466 x10^3/uL (130-400); RED BLOOD COUNT 4.35 x10^6/uL (4.38-5.82); RED CELL DISTRIBUTION WIDTH 27.7 % (9.4-14.8)
[2017-11-01 07:38] LABS: INTERNATIONAL NORMALIZED RATIO 1.78 (0.93-1.1); PROTHROMBIN TIME 18.1 Seconds (9.6-11.5)
[2017-11-01] MEDS: HEPARIN 5,000 UNITS/ML, 1ML IV PRN ×3 (07:54→21:52)
[2017-11-01 08:55] LABS: MD YES
[2017-11-01] MEDS: CARBAMAZEPINE 200 MG TABLET PO SCH ×2 (09:00→20:31)
[2017-11-01] MEDS: HYDROXYZINE PAMOATE 25MG CAP PO SCH ×2 (09:00→20:31)
[2017-11-01] MEDS ORDERED: SALMETEROL INH SCH (09:00)
[2017-11-01] MEDS ORDERED: FLUTICASONE/VILANTEROL 200-25MCG/INH INH SCH (09:00)
[2017-11-01] MEDS ORDERED: FLUTICASONE INH SCH (09:00)
[2017-11-01 09:28] LABS: LYMPH#(MANUAL) 0.28 x10^3/uL (1-3.4); LYMPHS% (MANUAL) 2 % (22-44); NRBC % (MANUAL) 14 % (0-1); SEG#(MANUAL) 13.72 x10^3/uL (1.8-6.8); SEGS% (MANUAL) 98 % (42-75)
[2017-11-01 09:29] LABS: ANISOCYTOSIS 3+; MICROCYTOSIS 2+
[2017-11-01 09:30] LABS: HYPOCHROMIA 1+
[2017-11-01 09:34] LABS: OVALOCYTES 1+
[2017-11-01 09:35] LABS: SCHISTOCYTES 1+; SPHEROCYTES 1+
[2017-11-01 09:36] LABS: ACANTHOCYTES 1+; HOWELL-JOLLY BODIES 1+; PAPPENHEIMER BODIES 1+; TARGET CELLS 2+
[2017-11-01 09:37] LABS: <PLATELET ESTIMATE> INCREASED; <PLT MORPHOLOGY> NORMAL PLT MORPH; LARGE PLATELETS 1+
[2017-11-01 09:51] LABS: MEAN CORPUSCULAR HGB CONC 28.6 g/dL (33.2-36.2)
[2017-11-01] MEDS: OMEPRAZOLE 20 MG CAPSULE.DR PO SCH (09:52)
[2017-11-01] MEDS: DULOXETINE 30 MG CAPSULE.DR PO SCH (09:52)
[2017-11-01] MEDS: FLUTICASONE/VILANTEROL 200-25MCG/INH INH SCH (09:52)
[2017-11-01] MEDS: CARVEDILOL 6.25 MG TABLET PO SCH ×2 (09:53→20:30)
[2017-11-01] MEDS: SENNA/DOCUSATE TABLET PO SCH (09:53)
[2017-11-01 12:00] VITALS: BP 110/70
[2017-11-01] MEDS: HYDROcodone/APAP 5/325 TABLET PO PRN ×3 (13:26→22:46)
[2017-11-01] MEDS ORDERED: WARFARIN 7.5 MG TABLET PO-COUM SCH (18:00)
[2017-11-01 19:58] VITALS: BP 116/71
[2017-11-01] MEDS: PRAVASTATIN 40 MG TABLET PO SCH (20:30)
[2017-11-01] MEDS: ALLOPURINOL 300 MG TABLET PO SCH (20:31)
[2017-11-02] MEDS: morphine SULFATE 10 MG/ML, 1ML IVPush PRN ×7 (00:48→23:19)
[2017-11-02 01:57] VITALS: BP 144/89
[2017-11-02] MEDS: AMPICILLIN/SULBACTAM 3 GM in SODIUM CHLORIDE 0.9% 100 ML IV SCH ×4 (02:27→20:30)
[2017-11-02] MEDS: HEPARIN 5,000 UNITS/ML, 1ML IV PRN ×2 (04:57→12:12)
[2017-11-02] MEDS: SODIUM CHLORIDE 0.9% 1,000 ML IV SCH ×2 (05:03→14:14)
[2017-11-02] MEDS: DEXAMETHASONE 4 MG/ML, 1ML IVPush SCH ×4 (05:03→23:19)
[2017-11-02 06:50] VITALS: BP 127/74
[2017-11-02] MEDS: OMEPRAZOLE 20 MG CAPSULE.DR PO SCH (07:47)
[2017-11-02] MEDS: HYDROXYZINE PAMOATE 25MG CAP PO SCH ×2 (07:48→21:00)
[2017-11-02] MEDS: CARBAMAZEPINE 200 MG TABLET PO SCH ×2 (07:48→21:00)
[2017-11-02] MEDS: FLUTICASONE/VILANTEROL 200-25MCG/INH INH SCH (07:48)
[2017-11-02] MEDS: CARVEDILOL 6.25 MG TABLET PO SCH ×2 (07:48→22:02)
[2017-11-02] MEDS: DULOXETINE 30 MG CAPSULE.DR PO SCH (07:49)
[2017-11-02] MEDS: SENNA/DOCUSATE TABLET PO SCH (07:49)
[2017-11-02 08:08] LABS: INTERNATIONAL NORMALIZED RATIO 3.2 (0.93-1.1); PROTHROMBIN TIME 32.2 Seconds (9.6-11.5)
[2017-11-02] MEDS ORDERED: IPRATROPIUM 0.5 MG/2.5 ML INHA NPPB PRN (09:00)
[2017-11-02] MEDS: HEPARIN 25,000 UNITS/500ML PMX 500 ML IV PRN (12:17)
[2017-11-02] MEDS: HYDROcodone/APAP 5/325 TABLET PO PRN ×3 (12:20→22:01)
[2017-11-02 12:34] VITALS: BP 109/74
[2017-11-02] MEDS ORDERED: WARFARIN 5 MG TABLET PO-COUM SCH (18:00)
[2017-11-02 19:32] VITALS: BP 136/85
[2017-11-02] MEDS: PRAVASTATIN 40 MG TABLET PO SCH (22:01)
[2017-11-02] MEDS: ALLOPURINOL 300 MG TABLET PO SCH (22:01)
[2017-11-03] MEDS: SODIUM CHLORIDE 0.9% 1,000 ML IV SCH ×3 (00:22→16:56)
[2017-11-03] MEDS: AMPICILLIN/SULBACTAM 3 GM in SODIUM CHLORIDE 0.9% 100 ML IV SCH ×4 (02:57→21:13)
[2017-11-03] MEDS: morphine SULFATE 10 MG/ML, 1ML IVPush PRN ×6 (03:19→22:07)
[2017-11-03 04:39] VITALS: BP 139/87
[2017-11-03 04:42] LABS: INTERNATIONAL NORMALIZED RATIO 3.58 (0.93-1.1)
[2017-11-03] MEDS: DEXAMETHASONE 4 MG/ML, 1ML IVPush SCH ×4 (05:00→23:53)
[2017-11-03 07:04] VITALS: BP 159/100
[2017-11-03] MEDS: OMEPRAZOLE 20 MG CAPSULE.DR PO SCH (07:44)
[2017-11-03] MEDS ORDERED: HOLD MEDICATION MC PRN (08:00)
[2017-11-03] MEDS: HYDROcodone/APAP 5/325 TABLET PO PRN ×3 (09:36→20:00)
[2017-11-03] MEDS: CARBAMAZEPINE 200 MG TABLET PO SCH ×2 (09:37→20:28)
[2017-11-03] MEDS: SENNA/DOCUSATE TABLET PO SCH (09:39)
[2017-11-03] MEDS: DULOXETINE 30 MG CAPSULE.DR PO SCH (09:39)
[2017-11-03] MEDS: HYDROXYZINE PAMOATE 25MG CAP PO SCH ×2 (09:40→20:29)
[2017-11-03] MEDS: FLUTICASONE/VILANTEROL 200-25MCG/INH INH SCH (09:40)
[2017-11-03] MEDS: CARVEDILOL 6.25 MG TABLET PO SCH ×2 (09:40→20:29)
[2017-11-03 15:57] VITALS: BP 152/90
[2017-11-03] MEDS ORDERED: FUROSEMIDE 100 MG/10 ML IV ONE (19:30)
[2017-11-03] MEDS: POTASSIUM CHLORIDE 20 MEQ TAB.ER.PRT PO SCH (19:30)
[2017-11-03 19:47] VITALS: BP 141/68
[2017-11-03] MEDS: MAGNESIUM OXIDE 400 MG TABLET PO SCH (20:28)
[2017-11-03] MEDS: PRAVASTATIN 40 MG TABLET PO SCH (20:28)
[2017-11-03] MEDS: ALLOPURINOL 300 MG TABLET PO SCH (20:30)
[2017-11-04] MEDS: HYDROcodone/APAP 5/325 TABLET PO PRN ×3 (02:08→15:18)
[2017-11-04 02:59] VITALS: BP 148/76
[2017-11-04] MEDS: AMPICILLIN/SULBACTAM 3 GM in SODIUM CHLORIDE 0.9% 100 ML IV SCH ×4 (03:32→21:11)
[2017-11-04] MEDS: morphine SULFATE 10 MG/ML, 1ML IVPush PRN ×5 (03:32→21:11)
[2017-11-04] MEDS: SODIUM CHLORIDE 0.9% 1,000 ML IV SCH ×3 (03:37→15:55)
[2017-11-04 04:49] LABS: INTERNATIONAL NORMALIZED RATIO 2.71 (0.93-1.1); MEAN CORPUSCULAR HEMOGLOBIN 19.7 pg (27.5-34.5); MEAN CORPUSCULAR VOLUME 68.2 fL (81-97); MEAN PLATELET VOLUME 7.9 fL (7.4-10.4); PLATELET COUNT 343 x10^3/uL (130-400); PROTHROMBIN TIME 27.4 Seconds (9.6-11.5); RED BLOOD COUNT 4.28 x10^6/uL (4.38-5.82); RED CELL DISTRIBUTION WIDTH 28.3 % (9.4-14.8)
[2017-11-04 04:51] LABS: MEAN CORPUSCULAR HGB CONC 28.9 g/dL (33.2-36.2)
[2017-11-04 04:55] LABS: ALBUMIN 2.7 g/dL (3.4-5.0); ANION GAP 7 mmol/L (5-15); CALCIUM 9.1 mg/dL (8.5-10.1); CHLORIDE 104 mmol/L (98-107)
[2017-11-04 04:59] LABS: ALANINE AMINOTRANSFERASE 11 U/L (12-78); ALKALINE PHOSPHATASE 61 U/L (45-117); BILIRUBIN,TOTAL 0.4 mg/dL (0.2-1.0); CREATININE 0.56 mg/dL (0.7-1.3); TOTAL PROTEIN 6.3 g/dL (6.4-8.2)
[2017-11-04] MEDS: DEXAMETHASONE 4 MG/ML, 1ML IVPush SCH ×4 (05:11→23:54)
[2017-11-04 05:51] LABS: MD YES
[2017-11-04 05:54] LABS: BAND#(MANUAL) 0.11 x10^3/uL; BANDS%(MANUAL) 1 % (0-7); NRBC % (MANUAL) 10 % (0-1)
[2017-11-04 05:55] LABS: LYMPH#(MANUAL) 0.45 x10^3/uL (1-3.4); LYMPHS% (MANUAL) 4 % (22-44); MONOS#(MANUAL) 0.45 x10^3/uL (0.3-2.7); MONOS% (MANUAL) 4 % (2-9); SEG#(MANUAL) 10.28 x10^3/uL (1.8-6.8); SEGS% (MANUAL) 91 % (42-75)
[2017-11-04 05:56] LABS: ANISOCYTOSIS 3+; MICROCYTOSIS 2+; TARGET CELLS 2+
[2017-11-04 05:57] LABS: HOWELL-JOLLY BODIES 1+; SCHISTOCYTES 1+
[2017-11-04 05:58] LABS: HYPOCHROMIA 1+; OVALOCYTES 1+; SPHEROCYTES 1+
[2017-11-04 05:59] LABS: <PLATELET ESTIMATE> ADEQUATE; LARGE PLATELETS 1+
[2017-11-04 07:58] VITALS: BP 175/108
[2017-11-04] MEDS: FLUTICASONE/VILANTEROL 200-25MCG/INH INH SCH (08:02)
[2017-11-04] MEDS: DULOXETINE 30 MG CAPSULE.DR PO SCH (08:03)
[2017-11-04] MEDS: MAGNESIUM OXIDE 400 MG TABLET PO SCH ×2 (08:03→21:08)
[2017-11-04] MEDS: OMEPRAZOLE 20 MG CAPSULE.DR PO SCH (08:04)
[2017-11-04] MEDS: SENNA/DOCUSATE TABLET PO SCH (08:04)
[2017-11-04] MEDS: CARBAMAZEPINE 200 MG TABLET PO SCH ×2 (08:04→21:00)
[2017-11-04] MEDS: CARVEDILOL 6.25 MG TABLET PO SCH ×2 (08:05→21:09)
[2017-11-04] MEDS: POTASSIUM CHLORIDE 20 MEQ TAB.ER.PRT PO SCH ×2 (08:05→17:38)
[2017-11-04] MEDS: FUROSEMIDE 40 MG/4 ML IV SCH (08:05)
[2017-11-04] MEDS: HYDROXYZINE PAMOATE 25MG CAP PO SCH ×2 (08:06→21:00)
[2017-11-04 08:50] VITALS: BP 139/90
[2017-11-04 12:15] VITALS: BP 149/95
[2017-11-04] MEDS ORDERED: MAGNESIUM SULFATE PMX 2GM/50ML 50 ML IV ONE (13:00)
[2017-11-04] MEDS ORDERED: WARFARIN 7.5 MG TABLET PO-COUM ONE (18:00)
[2017-11-04 19:16] VITALS: BP 142/89
[2017-11-04] MEDS: ALLOPURINOL 300 MG TABLET PO SCH (21:08)
[2017-11-04] MEDS: PRAVASTATIN 40 MG TABLET PO SCH (21:09)
[2017-11-05] MEDS: SODIUM CHLORIDE 0.9% 1,000 ML IV SCH ×2 (01:00→08:15)
[2017-11-05 01:12] VITALS: BP 136/84
[2017-11-05] MEDS: AMPICILLIN/SULBACTAM 3 GM in SODIUM CHLORIDE 0.9% 100 ML IV SCH (04:07)
[2017-11-05] MEDS: DEXAMETHASONE 4 MG/ML, 1ML IVPush SCH (04:07)
[2017-11-05 05:07] LABS: INTERNATIONAL NORMALIZED RATIO 2.26 (0.93-1.1); PROTHROMBIN TIME 22.9 Seconds (9.6-11.5)
[2017-11-05] MEDS: morphine SULFATE 10 MG/ML, 1ML IVPush PRN (06:36)
[2017-11-05] MEDS: POTASSIUM CHLORIDE 20 MEQ TAB.ER.PRT PO SCH (08:09)
[2017-11-05] MEDS: CARVEDILOL 6.25 MG TABLET PO SCH (08:09)
[2017-11-05] MEDS: HYDROcodone/APAP 5/325 TABLET PO PRN (08:09)
[2017-11-05] MEDS: HYDROXYZINE PAMOATE 25MG CAP PO SCH (08:10)
[2017-11-05] MEDS: CARBAMAZEPINE 200 MG TABLET PO SCH (08:10)
[2017-11-05] MEDS: DULOXETINE 30 MG CAPSULE.DR PO SCH (08:10)
[2017-11-05] MEDS: OMEPRAZOLE 20 MG CAPSULE.DR PO SCH (08:10)
[2017-11-05] MEDS: SENNA/DOCUSATE TABLET PO SCH (08:10)
[2017-11-05] MEDS: FUROSEMIDE 40 MG/4 ML IV SCH (08:11)
[2017-11-05] MEDS: FLUTICASONE/VILANTEROL 200-25MCG/INH INH SCH (08:15)
[2017-11-05] MEDS: MAGNESIUM OXIDE 400 MG TABLET PO SCH (08:15)
[2017-11-05] MEDS ORDERED: FURO80TA77 PO (09:06)
[2017-11-05] MEDS ORDERED: AMOX1TAB64 PO (09:06)
[2017-11-05] MEDS ORDERED: METH4TAB2 PO (09:06)
[2017-11-05 09:11] VITALS: BP 138/89
[2017-11-05] MEDS ORDERED: WARFARIN 10 MG TABLET PO-COUM ONE (18:00)
== END 2017-11-05 10:04 | disposition home or self-care (01) | DRG 154 ==
LOC: ED 11:49 → EDIP 14:26 → 3NW 14:38
PROVIDERS: ADMIT Internal Medicine; ATTEND Internal Medicine
DX: K11.21 Acute sialoadenitis (principal); J96.01 Acute respiratory failure with hypoxia; D68.69 Other thrombophilia; E44.1 Mild protein-calorie malnutrition; E66.01 Morbid (severe) obesity due to excess calories; E83.42 Hypomagnesemia; E86.0 Dehydration; I48.2 Chronic atrial fibrillation; T82.868A Thrombosis due to vascular prosthetic devices, implants and grafts, initial encounter; Z68.41 Body mass index [BMI] 40.0-44.9, adult; R13.10 Dysphagia, unspecified; I27.20 Pulmonary hypertension, unspecified; I50.9 Heart failure, unspecified; I11.0 Hypertensive heart disease with heart failure; D50.9 Iron deficiency anemia, unspecified; D72.829 Elevated white blood cell count, unspecified; E78.5 Hyperlipidemia, unspecified; F32.9 Major depressive disorder, single episode, unspecified; G47.33 Obstructive sleep apnea (adult) (pediatric); I25.10 Atherosclerotic heart disease of native coronary artery without angina pectoris; I73.9 Peripheral vascular disease, unspecified; I87.8 Other specified disorders of veins; J44.9 Chronic obstructive pulmonary disease, unspecified; K21.9 Gastro-esophageal reflux disease without esophagitis; Z79.01 Long term (current) use of anticoagulants; Z79.891 Long term (current) use of opiate analgesic; Z85.810 Personal history of malignant neoplasm of tongue; Z86.711 Personal history of pulmonary embolism; Z90.81 Acquired absence of spleen; Z92.3 Personal history of irradiation; Z99.81 Dependence on supplemental oxygen
CPT/HCPCS: 36415; 70491; 74230; 77336; 77386; 80048; 80053; 83735; 84100; 84439; 85025; 85520; 85610; 86735; 86762; 86765; 94640; 96361; 96365; 96375; 96376; J0295; J1100; J1644; J1940; J2405; J7620; J7644; Q9967; J2270; J3475; J7030; S0028

== ENCOUNTER → 2017-12-25 | Outpatient (CLI) | payer MEDICARE ==
[~2017-12-25] MED LIST changes: +AMOX1TAB64 PO; +METH4TAB2 PO
== END ==
LOC: ROC 10:18
PROVIDERS: ATTEND Radiology Radiation Oncology
DX: Z08 Encounter for follow-up examination after completed treatment for malignant neoplasm (principal); C01 Malignant neoplasm of base of tongue
CPT/HCPCS: G0463

== ENCOUNTER → 2018-02-05 | Outpatient (CLI) | payer MEDICARE ==
[~2018-02-05] MED LIST changes: +APIX5TAB PO
[2018-02-05 12:24] LABS: CHLORIDE 102 mmol/L (98-107); MEAN CORPUSCULAR HEMOGLOBIN 30.9 pg (27.5-34.5); MEAN CORPUSCULAR HGB CONC 32.1 g/dL (33.2-36.2); MEAN CORPUSCULAR VOLUME 96.5 fL (81-97); MEAN PLATELET VOLUME 8.5 fL (7.4-10.4); PLATELET COUNT 376 x10^3/uL (130-400); RED BLOOD COUNT 4.51 x10^6/uL (4.38-5.82); RED CELL DISTRIBUTION WIDTH 29.9 % (9.4-14.8)
[2018-02-05 12:31] LABS: ALANINE AMINOTRANSFERASE 34 U/L (12-78); ALBUMIN 3.5 g/dL (3.4-5.0); ALKALINE PHOSPHATASE 112 U/L (45-117); ANION GAP 6 mmol/L (5-15); BILIRUBIN,TOTAL 0.6 mg/dL (0.2-1.0); CREATININE 0.75 mg/dL (0.7-1.3); TOTAL PROTEIN 7.4 g/dL (6.4-8.2)
[2018-02-05 12:57] LABS: MD YES
[2018-02-05 13:02] LABS: BAND#(MANUAL) 0.16 x10^3/uL; BANDS%(MANUAL) 2 % (0-7); BASOS#(MANUAL) 0.08 x10^3/uL (0-0.1); BASOS% (MANUAL) 1 % (0-1); EOS#(MANUAL) 0.24 x10^3/uL (0.0-0.4); EOS% (MANUAL) 3 % (1-7); LYMPH#(MANUAL) 0.55 x10^3/uL (1-3.4); LYMPHS% (MANUAL) 7 % (22-44); MONOS#(MANUAL) 1.11 x10^3/uL (0.3-2.7); MONOS% (MANUAL) 14 % (2-9); NRBC % (MANUAL) 4 % (0-1); SEG#(MANUAL) 5.77 x10^3/uL (1.8-6.8); SEGS% (MANUAL) 73 % (42-75)
[2018-02-05 13:09] LABS: ANISOCYTOSIS 2+; MICROCYTOSIS 1+
[2018-02-05 13:10] LABS: HYPOCHROMIA 1+; OVALOCYTES 1+; POLYCHROMASIA 1+; SCHISTOCYTES 1+
[2018-02-05 13:12] LABS: HOWELL-JOLLY BODIES 1+; TARGET CELLS 2+
[2018-02-05 13:16] LABS: <PLATELET ESTIMATE> ADEQUATE; <PLT MORPHOLOGY> NORMAL PLT MORPH
== END | disposition home or self-care (01) ==
LOC: STAR 11:11
PROVIDERS: ATTEND Surgery
DX: R94.31 Abnormal electrocardiogram [ECG] [EKG] (principal); I48.92 Unspecified atrial flutter; Z79.01 Long term (current) use of anticoagulants
CPT/HCPCS: 36415; 80053; 85025; 93005

== ENCOUNTER 2018-02-09 06:58 | Day surgery (SDC) | payer MEDICARE ==
[~2018-02-09] VITALS: Ht 177.8 cm; Wt 107.0 kg
[~2018-02-09 06:58] MED LIST changes: +BUPIVACAINE/PF 0.25% ONE; +EPINEPHRINE 1 MG/ML, 1ML ONE
[2018-02-09] MEDS ORDERED: LACTATED RINGERS 1,000 ML IV SCH (07:15)
[2018-02-09 07:40] VITALS: BP 109/80
[2018-02-09] MEDS ORDERED: OxyconTIN ER 10 MG TAB.ER PO ONE (08:30)
[2018-02-09] MEDS ORDERED: SCOPOLAMINE PATCH, 1.5MG PATCH.TD72 TD ONE (08:30)
[2018-02-09] MEDS ORDERED: ACETAMINOPHEN 500 MG TABLET PO ONE (08:30)
[2018-02-09] MEDS ORDERED: ONDANSETRON ODT 8 MG PO ONE (08:30)
[2018-02-09] MEDS ORDERED: FENTANYL PF 100 MCG/2ML ONE (09:01)
[2018-02-09] MEDS ORDERED: PHENYLEPHRINE 10 MG/ML ONE (09:05)
[2018-02-09] MEDS ORDERED: CEFAZOLIN 1,000 MG ONE (09:05)
[2018-02-09] MEDS ORDERED: DEXAMETHASONE 4 MG/ML, 1ML ONE (09:05)
[2018-02-09] MEDS ORDERED: hydrALAzine 20 MG/ML, 1ML IV PRN (10:00)
[2018-02-09] MEDS ORDERED: PROMETHAZINE 12.5 MG SUPP PR PRN (10:00)
[2018-02-09] MEDS ORDERED: ONDANSETRON ODT 8 MG PO PRN (10:00)
[2018-02-09] MEDS ORDERED: MEPERIDINE/PF 25MG/0.5ML IVPush PRN (10:00)
[2018-02-09] MEDS ORDERED: LABETALOL 5MG/ML, 20ML IV PRN (10:00)
[2018-02-09] MEDS ORDERED: PROMETHAZINE 25 MG/ML, 1ML IV PRN (10:00)
[2018-02-09] MEDS ORDERED: OXYcodone 5 MG/5 ML ORAL.SOL UDC PO PRN (10:00)
[2018-02-09] MEDS ORDERED: ALBUTEROL SULFATE 2.5 MG/3 ML NPPB PRN (10:00)
[2018-02-09] MEDS ORDERED: MIDAZOLAM 1 MG/ML, 2ML IV PRN (10:00)
[2018-02-09] MEDS ORDERED: MORPHINE SULFATE 4 MG/ML, 1ML IVPush PRN (10:00)
[2018-02-09] MEDS ORDERED: FENTANYL PF 100 MCG/2ML IV PRN (10:00)
== END 2018-02-09 11:05 ==
LOC: OUT 06:58
PROVIDERS: ATTEND Surgery
DX: M79.89 Other specified soft tissue disorders (principal); D50.9 Iron deficiency anemia, unspecified; I10 Essential (primary) hypertension; E78.5 Hyperlipidemia, unspecified; J44.9 Chronic obstructive pulmonary disease, unspecified; Z93.1 Gastrostomy status; Z87.39 Personal history of other diseases of the musculoskeletal system and connective tissue; Z93.0 Tracheostomy status; Z90.81 Acquired absence of spleen; Z98.890 Other specified postprocedural states; Z86.718 Personal history of other venous thrombosis and embolism; Z87.891 Personal history of nicotine dependence; Z79.01 Long term (current) use of anticoagulants
CPT/HCPCS: 24071; 88304; J0171; J0690; J1100; J2370; J3010; J3490; J7120; Q0162; 88307

== ENCOUNTER → 2018-03-25 | Outpatient (CLI) | payer MEDICARE ==
[~2018-03-25] MED LIST changes: -BUPIVACAINE/PF 0.25% ONE; -CLON-364 PO; +CLON0.5T11 PO; -EPINEPHRINE 1 MG/ML, 1ML ONE; -IPRA3AMP INH; +IPRA3AMP30 INH; +TRAZ-137 PO; -TRAZ100T15 PO
== END | disposition home or self-care (01) ==
LOC: PETCFH 09:28
PROVIDERS: ATTEND Radiology Radiation Oncology
DX: C01 Malignant neoplasm of base of tongue (principal); K44.9 Diaphragmatic hernia without obstruction or gangrene; I10 Essential (primary) hypertension; E78.5 Hyperlipidemia, unspecified; K21.9 Gastro-esophageal reflux disease without esophagitis; E66.01 Morbid (severe) obesity due to excess calories; Z79.01 Long term (current) use of anticoagulants
CPT/HCPCS: 78815; A9552

== ENCOUNTER → 2018-07-06 | Outpatient (CLI) | payer MEDICARE | END | disposition home or self-care (01) | LOC: ROC 08:06 | PROVIDERS: ATTEND Radiology Radiation Oncology | DX: Z08 Encounter for follow-up examination after completed treatment for malignant neoplasm (principal); C01 Malignant neoplasm of base of tongue | CPT/HCPCS: G0463 ==

== ENCOUNTER → 2018-07-16 | Outpatient (CLI) | payer MEDICARE | END | disposition home or self-care (01) | LOC: CVU 09:48 | PROVIDERS: ATTEND Internal Medicine Cardiovascular Disease | DX: I65.23 Occlusion and stenosis of bilateral carotid arteries (principal); I08.2 Rheumatic disorders of both aortic and tricuspid valves; I27.20 Pulmonary hypertension, unspecified; I48.2 Chronic atrial fibrillation; J44.9 Chronic obstructive pulmonary disease, unspecified; E78.2 Mixed hyperlipidemia; I11.0 Hypertensive heart disease with heart failure; I50.9 Heart failure, unspecified; Z86.718 Personal history of other venous thrombosis and embolism; Z79.899 Other long term (current) drug therapy | CPT/HCPCS: 0399T; 93306; 93880 ==

== ENCOUNTER → 2018-10-05 | Outpatient (CLI) | payer MEDICARE ==
[~2018-10-05] MED LIST changes: +OMNIPAQUE 350 MG/ML, 150 ML BOTTLE ONE
== END | disposition home or self-care (01) ==
LOC: CFH 12:02
PROVIDERS: ATTEND Internal Medicine Hematology & Oncology
DX: K45.8 Other specified abdominal hernia without obstruction or gangrene (principal); E04.1 Nontoxic single thyroid nodule; I25.10 Atherosclerotic heart disease of native coronary artery without angina pectoris; I50.9 Heart failure, unspecified; J44.9 Chronic obstructive pulmonary disease, unspecified; Z85.810 Personal history of malignant neoplasm of tongue
CPT/HCPCS: 70491; 71260; 82565; Q9967

== ENCOUNTER → 2018-12-17 | Outpatient (CLI) | payer MEDICARE ==
[~2018-12-17] MED LIST changes: -OMNIPAQUE 350 MG/ML, 150 ML BOTTLE ONE
== END | disposition home or self-care (01) ==
LOC: RAD 13:42
PROVIDERS: ATTEND Otolaryngology
DX: C01 Malignant neoplasm of base of tongue (principal); C77.0 Secondary and unspecified malignant neoplasm of lymph nodes of head, face and neck
CPT/HCPCS: 76536

== ENCOUNTER → 2018-12-23 | Outpatient (CLI) | payer MEDICARE | END | disposition home or self-care (01) | LOC: CFH 12:24 | PROVIDERS: ATTEND Registered Nurse | DX: K44.9 Diaphragmatic hernia without obstruction or gangrene (principal); I27.89 Other specified pulmonary heart diseases | CPT/HCPCS: 71046 ==

== ENCOUNTER → 2018-12-24 | Outpatient (CLI) | payer MEDICARE ==
[2018-12-24 15:45] LABS: ANION GAP 4 mmol/L (5-15); CALCIUM 9.5 mg/dL (8.5-10.1); CHLORIDE 104 mmol/L (98-107); CREATININE 0.87 mg/dL (0.7-1.3)
== END | disposition home or self-care (01) ==
LOC: CFH 12:43
PROVIDERS: ATTEND Nurse Practitioner Family
DX: I10 Essential (primary) hypertension (principal); I48.2 Chronic atrial fibrillation; E78.2 Mixed hyperlipidemia
CPT/HCPCS: 36415; 80048

== ENCOUNTER → 2018-12-24 | Outpatient (CLI) | payer MEDICARE | END | disposition home or self-care (01) | LOC: EDSTATUS 15:00 → CVU 15:05 | PROVIDERS: ATTEND Nurse Practitioner Family | DX: I82.511 Chronic embolism and thrombosis of right femoral vein (principal); I82.531 Chronic embolism and thrombosis of right popliteal vein; L03.115 Cellulitis of right lower limb; I10 Essential (primary) hypertension; I48.91 Unspecified atrial fibrillation; E66.01 Morbid (severe) obesity due to excess calories | CPT/HCPCS: 93971 ==

== ENCOUNTER → 2018-12-28 | Outpatient (CLI) | payer MEDICARE | END | disposition home or self-care (01) | LOC: ROC 08:31 | PROVIDERS: ATTEND Radiology Radiation Oncology | DX: C01 Malignant neoplasm of base of tongue (principal); Z87.891 Personal history of nicotine dependence; Z92.3 Personal history of irradiation; Z92.21 Personal history of antineoplastic chemotherapy; Z79.899 Other long term (current) drug therapy | CPT/HCPCS: G0463 ==

== ENCOUNTER → 2019-03-08 | Outpatient (CLI) | payer MEDICARE ==
[~2019-03-08] MED LIST changes: +FLUO10CA13 PO; -IPRA3AMP30 INH; +IPRA3AMP30 NEB; +TERA1CAP3 PO; +TIZA4CAP PO
[2019-03-08 12:55] LABS: ALBUMIN 3.7 g/dL (3.4-5.0); ANION GAP 7 mmol/L (5-15); CHLORIDE 99 mmol/L (98-107)
[2019-03-08 13:03] LABS: ALANINE AMINOTRANSFERASE 21 U/L (12-78); ALKALINE PHOSPHATASE 107 U/L (45-117); BILIRUBIN,TOTAL 0.8 mg/dL (0.2-1.0); CALCIUM 9.5 mg/dL (8.5-10.1); CREATININE 0.95 mg/dL (0.7-1.3); TOTAL PROTEIN 7.4 g/dL (6.4-8.2)
[2019-03-08 14:57] LABS: MD YES; MEAN CORPUSCULAR HEMOGLOBIN 24.6 pg (27.5-34.5); MEAN CORPUSCULAR HGB CONC 30.4 g/dL (33.2-36.2); MEAN PLATELET VOLUME 8.4 fL (7.4-10.4); PLATELET COUNT 641 x10^3/uL (130-400); RED BLOOD COUNT 5.18 x10^6/uL (4.38-5.82); RED CELL DISTRIBUTION WIDTH 21.9 % (9.4-14.8)
[2019-03-08 15:31] LABS: ANISOCYTOSIS 2+; BAND#(MANUAL) 0.08 x10^3/uL; BANDS%(MANUAL) 1 % (0-7); EOS#(MANUAL) 0.47 x10^3/uL (0.0-0.4); EOS% (MANUAL) 6 % (1-7); LYMPH#(MANUAL) 2.13 x10^3/uL (1-3.4); LYMPHS% (MANUAL) 27 % (22-44); MONOS#(MANUAL) 1.11 x10^3/uL (0.3-2.7); MONOS% (MANUAL) 14 % (2-9); NRBC % (MANUAL) 2 % (0-1); REACTIVE LYMPHS # (MANUAL) 0.08 x10^3/uL (0-0); REACTIVE LYMPHS % (MANUAL) 1 % (0-0); SEG#(MANUAL) 4.03 x10^3/uL (1.8-6.8); SEGS% (MANUAL) 51 % (42-75)
[2019-03-08 15:32] LABS: <PLATELET ESTIMATE> INCREASED; <PLT MORPHOLOGY> NORMAL PLT MORPH; HYPOCHROMIA 1+; MICROCYTOSIS 1+; POLYCHROMASIA 1+; TARGET CELLS 1+
== END | disposition home or self-care (01) ==
LOC: STAR 11:02
PROVIDERS: ATTEND Thoracic Surgery (Cardiothoracic Vascular Surgery)
DX: Z01.818 Encounter for other preprocedural examination (principal); K43.9 Ventral hernia without obstruction or gangrene; R94.31 Abnormal electrocardiogram [ECG] [EKG]
CPT/HCPCS: 36415; 80053; 85025; 93005

== ENCOUNTER 2019-03-17 05:52 | Inpatient (IN) | payer MEDICARE ==
[~2019-03-17] VITALS: Ht 177.8 cm; Wt 123.3 kg
[2019-03-17] MEDS ORDERED: LIDOCAINE-MPF 1%, 2ML INFIL ONE (06:30)
[2019-03-17] MEDS ORDERED: BUPIVACAINE/EPI 0.5% 1:200K ONE (06:52)
[2019-03-17] MEDS: LACTATED RINGERS 1,000 ML IV SCH ×4 (07:05→15:26)
[2019-03-17] MEDS ORDERED: MIDAZOLAM 1 MG/ML, 2ML ONE (07:06)
[2019-03-17] MEDS ORDERED: FENTANYL PF 250 MCG/5ML ONE (07:06)
[2019-03-17] MEDS ORDERED: PROPOFOL 50 ML ONE ×2 (07:06→08:10)
[2019-03-17] MEDS ORDERED: DEXAMETHASONE 4 MG/ML, 1ML ONE (07:50)
[2019-03-17] MEDS ORDERED: SUCCINYLCHOLINE 20 MG/ML, 10ML ONE (07:50)
[2019-03-17] MEDS ORDERED: ROCURONIUM 10MG/ML,5ML ONE (07:50)
[2019-03-17] MEDS ORDERED: ONDANSETRON 2MG/ML, 2ML ONE (07:50)
[2019-03-17] MEDS ORDERED: CEFAZOLIN 1,000 MG ONE ×3 (07:50)
[2019-03-17] MEDS ORDERED: EPHEDRINE 50 MG/ML, 1ML IVPush PRN (08:00)
[2019-03-17] MEDS ORDERED: DIPHENHYDRAMINE 50 MG/ML, 1ML IVPush PRN (08:00)
[2019-03-17] MEDS ORDERED: EPHEDRINE 50 MG/ML, 1ML IM PRN (08:00)
[2019-03-17] MEDS ORDERED: MIDAZOLAM 1 MG/ML, 2ML IV PRN (08:00)
[2019-03-17] MEDS ORDERED: OXYcodone 5 MG/5 ML ORAL.SOL UDC PO PRN (08:00)
[2019-03-17] MEDS ORDERED: DIAZEPAM 5 MG/ML, 2ML IVPush PRN (08:00)
[2019-03-17] MEDS ORDERED: PROMETHAZINE 25 MG/ML, 1ML IV PRN (08:00)
[2019-03-17] MEDS ORDERED: METOPROLOL 1 MG/ML, 5ML IV PRN (08:00)
[2019-03-17] MEDS ORDERED: ONDANSETRON 2MG/ML, 2ML IV PRN (08:00)
[2019-03-17] MEDS ORDERED: MEPERIDINE/PF 25MG/0.5ML IVPush PRN (08:00)
[2019-03-17] MEDS ORDERED: hydrALAzine 20 MG/ML, 1ML IV PRN ×2 (08:00→10:00)
[2019-03-17] MEDS ORDERED: ONDANSETRON ODT 8 MG PO PRN (08:00)
[2019-03-17] MEDS ORDERED: SUGAMMADEX 200 MG/2 ML IVPush ONE (09:42)
[2019-03-17] MEDS ORDERED: HYDROmorphone 2 MG/ML, 1ML ONE ×2 (09:49→13:16)
[2019-03-17] MEDS ORDERED: FENTANYL PF 100 MCG/2ML ONE (09:49)
[2019-03-17] MEDS ORDERED: ONDANSETRON 2MG/ML, 2ML IVPush PRN (10:00)
[2019-03-17] MEDS ORDERED: PROMETHAZINE 12.5 MG SUPP PR PRN (10:00)
[2019-03-17] MEDS ORDERED: HYDROmorphone 1 MG/ML, 1ML INJ IV PRN (10:00)
[2019-03-17] MEDS ORDERED: PROMETHAZINE 25 MG/ML, 1ML IM PRN (10:00)
[2019-03-17] MEDS ORDERED: DIPHENHYDRAMINE 50 MG/ML, 1ML IV PRN (10:00)
[2019-03-17] MEDS ORDERED: ENALAPRILAT 1.25 MG/ML, 2ML IV PRN (10:00)
[2019-03-17] MEDS ORDERED: LORazepam 2 MG/ML, 1ML IV PRN (10:00)
[2019-03-17] MEDS: HYDROmorphone 2 MG/ML, 1ML IVPush PRN ×3 (10:22→10:40)
[2019-03-17] MEDS: FENTANYL PF 100 MCG/2ML IV PRN ×2 (10:26→10:38)
[2019-03-17] MEDS ORDERED: OXYcodone 5 MG/5 ML ORAL.SOL UDC ONE (10:29)
[2019-03-17] MEDS ORDERED: MEPERIDINE/PF 25MG/ML,1ML ONE (11:02)
[2019-03-17] MEDS ORDERED: ALBUTEROL SULFATE 2.5 MG/3 ML NPPB PRN (12:00)
[2019-03-17 13:22] VITALS: BP 148/100
[2019-03-17] MEDS: HYDROmorphone 2 MG/ML, 1ML IV PRN ×4 (17:02→23:59)
[2019-03-17] MEDS: CEFAZOLIN PMX 2GM/50ML 50 ML IVPB SCH (17:02)
[2019-03-17 18:57] VITALS: BP 129/82
[2019-03-17] MEDS: IPRATROPIUM 0.5 MG/2.5 ML INHA HHN SCH (21:00)
[2019-03-17] MEDS: CARVEDILOL 6.25 MG TABLET PO SCH (21:21)
[2019-03-17] MEDS: ALLOPURINOL 300 MG TABLET PO SCH (21:21)
[2019-03-17] MEDS: TERAZOSIN 1MG CAPSULE PO SCH (21:21)
[2019-03-18 00:44] VITALS: BP 114/71
[2019-03-18] MEDS: CEFAZOLIN PMX 2GM/50ML 50 ML IVPB SCH (00:58)
[2019-03-18] MEDS: HYDROmorphone 2 MG/ML, 1ML IV PRN ×8 (01:47→21:19)
[2019-03-18] MEDS: LACTATED RINGERS 1,000 ML IV SCH (01:48)
[2019-03-18] MEDS: IPRATROPIUM 0.5 MG/2.5 ML INHA HHN SCH ×4 (03:00→19:54)
[2019-03-18 04:49] LABS: MEAN CORPUSCULAR HEMOGLOBIN 23.3 pg (27.5-34.5); MEAN CORPUSCULAR VOLUME 79.1 fL (81-97); MEAN PLATELET VOLUME 7.9 fL (7.4-10.4); PLATELET COUNT 344 x10^3/uL (130-400); RED CELL DISTRIBUTION WIDTH 21.6 % (9.4-14.8)
[2019-03-18 04:55] LABS: ALBUMIN 3.2 g/dL (3.4-5.0); ANION GAP 4 mmol/L (5-15); CALCIUM 8.7 mg/dL (8.5-10.1); CHLORIDE 101 mmol/L (98-107)
[2019-03-18 04:58] LABS: ALANINE AMINOTRANSFERASE 26 U/L (12-78); ALKALINE PHOSPHATASE 84 U/L (45-117); BILIRUBIN,TOTAL 0.7 mg/dL (0.2-1.0); CREATININE 0.83 mg/dL (0.7-1.3); TOTAL PROTEIN 6.2 g/dL (6.4-8.2)
[2019-03-18 05:37] LABS: MD YES; MEAN CORPUSCULAR HGB CONC 29.4 g/dL (33.2-36.2)
[2019-03-18 05:39] LABS: LYMPH#(MANUAL) 1.73 x10^3/uL (1-3.4); LYMPHS% (MANUAL) 19 % (22-44); MONOS#(MANUAL) 1.37 x10^3/uL (0.3-2.7); MONOS% (MANUAL) 15 % (2-9); SEG#(MANUAL) 6.01 x10^3/uL (1.8-6.8); SEGS% (MANUAL) 66 % (42-75)
[2019-03-18 05:41] LABS: ANISOCYTOSIS 2+; HYPOCHROMIA 1+; MICROCYTOSIS 1+; OVALOCYTES 1+; SPHEROCYTES 1+; TARGET CELLS 2+
[2019-03-18 05:43] LABS: <PLATELET ESTIMATE> ADEQUATE; <PLT MORPHOLOGY> NORMAL PLT MORPH; POLYCHROMASIA 1+
[2019-03-18 06:50] VITALS: BP 121/76
[2019-03-18] MEDS: HYDROXYZINE PAMOATE 25MG CAP PO SCH ×2 (08:42→21:19)
[2019-03-18] MEDS: POTASSIUM CHLORIDE 20 MEQ TAB.ER.PRT PO SCH ×3 (08:42→21:19)
[2019-03-18] MEDS: FLUOXETINE 10 MG CAP PO SCH (08:43)
[2019-03-18] MEDS: DULOXETINE 30 MG CAPSULE.DR PO SCH (08:43)
[2019-03-18] MEDS: CARVEDILOL 6.25 MG TABLET PO SCH ×2 (08:43→21:20)
[2019-03-18] MEDS: FUROSEMIDE 80 MG TABLET PO SCH ×2 (08:43→21:20)
[2019-03-18] MEDS: ENOXAPARIN 60 MG/0.6 ML SQ SCH ×2 (08:44→21:20)
[2019-03-18] MEDS: PANTOPRAZOLE 40 MG IV IVPush SCH (09:07)
[2019-03-18] MEDS: HYDROcodone/APAP 7.5-325MG/15ML UDC PO PRN ×3 (10:10→23:42)
[2019-03-18 12:10] VITALS: BP 107/66
[2019-03-18] MEDS: GUAIFENESIN/DM 100-10MG, 5ML UDC PO PRN ×2 (18:20→23:42)
[2019-03-18 19:07] VITALS: BP 105/70
[2019-03-18] MEDS ORDERED: PRAVASTATIN SODIUM 40 MG TABLET PO SCH (21:00)
[2019-03-18] MEDS: TERAZOSIN 1MG CAPSULE PO SCH (21:19)
[2019-03-18 21:20] VITALS: BP 124/82
[2019-03-18] MEDS: ALLOPURINOL 300 MG TABLET PO SCH (21:20)
[2019-03-19 01:01] VITALS: BP 123/83
[2019-03-19] MEDS: IPRATROPIUM 0.5 MG/2.5 ML INHA HHN SCH ×2 (02:59→08:52)
[2019-03-19] MEDS: HYDROcodone/APAP 7.5-325MG/15ML UDC PO PRN (05:00)
[2019-03-19 05:07] LABS: ANION GAP 5 mmol/L (5-15); CALCIUM 8.7 mg/dL (8.5-10.1); CHLORIDE 102 mmol/L (98-107)
[2019-03-19 05:08] LABS: CREATININE 0.86 mg/dL (0.7-1.3)
[2019-03-19 05:19] LABS: MEAN CORPUSCULAR HEMOGLOBIN 24.1 pg (27.5-34.5); MEAN CORPUSCULAR HGB CONC 30.2 g/dL (33.2-36.2); MEAN CORPUSCULAR VOLUME 79.7 fL (81-97); PLATELET COUNT 324 x10^3/uL (130-400); RED BLOOD COUNT 4.55 x10^6/uL (4.38-5.82); RED CELL DISTRIBUTION WIDTH 21.1 % (9.4-14.8)
[2019-03-19 06:00] LABS: MD YES
[2019-03-19 06:04] LABS: BASOS#(MANUAL) 0.11 x10^3/uL (0-0.1); BASOS% (MANUAL) 1 % (0-1); EOS#(MANUAL) 0.68 x10^3/uL (0.0-0.4); EOS% (MANUAL) 6 % (1-7); LYMPH#(MANUAL) 1.03 x10^3/uL (1-3.4); LYMPHS% (MANUAL) 9 % (22-44); MONOS% (MANUAL) 14 % (2-9); SEG#(MANUAL) 7.98 x10^3/uL (1.8-6.8); SEGS% (MANUAL) 70 % (42-75)
[2019-03-19 06:05] LABS: ANISOCYTOSIS 2+; HYPOCHROMIA 1+; MICROCYTOSIS 1+; POLYCHROMASIA 1+
[2019-03-19 06:08] LABS: <PLATELET ESTIMATE> ADEQUATE; <PLT MORPHOLOGY> NORMAL PLT MORPH; TARGET CELLS 1+
[2019-03-19 06:09] LABS: HOWELL-JOLLY BODIES 1+
[2019-03-19 07:17] VITALS: BP 118/84
[2019-03-19] MEDS: FLUOXETINE 10 MG CAP PO SCH (09:55)
[2019-03-19] MEDS: HYDROXYZINE PAMOATE 25MG CAP PO SCH (09:55)
[2019-03-19] MEDS: POTASSIUM CHLORIDE 20 MEQ TAB.ER.PRT PO SCH (09:55)
[2019-03-19] MEDS: FUROSEMIDE 80 MG TABLET PO SCH (09:55)
[2019-03-19] MEDS: CARVEDILOL 6.25 MG TABLET PO SCH (09:56)
[2019-03-19] MEDS: PANTOPRAZOLE 40 MG IV IVPush SCH (09:56)
[2019-03-19] MEDS: ENOXAPARIN 60 MG/0.6 ML SQ SCH (09:56)
[2019-03-19] MEDS: DULOXETINE 30 MG CAPSULE.DR PO SCH (09:56)
[2019-03-19] MEDS ORDERED: HYDR15SO3 PO (12:03)
== END 2019-03-19 12:40 | disposition home or self-care (01) | DRG 327 ==
LOC: OUT 05:52 → 4WST 11:32 → DCLOUNGE 03-19 12:30
PROVIDERS: ADMIT Thoracic Surgery (Cardiothoracic Vascular Surgery); ATTEND Internal Medicine
PROC: 0BUT4JZ Supplement Diaphragm with Synthetic Substitute, Percutaneous Endoscopic Approach (ICD-10-PCS; 2019-03-17)
PROC: 0DNW4ZZ Release Peritoneum, Percutaneous Endoscopic Approach (ICD-10-PCS; 2019-03-17)
PROC: 5A09357 Assistance with Respiratory Ventilation, Less than 24 Consecutive Hours, Continuous Positive Airway Pressure (ICD-10-PCS; 2019-03-17)
PROC: 0DNL4ZZ Release Transverse Colon, Percutaneous Endoscopic Approach (ICD-10-PCS; 2019-03-17)
PROC: 0DV44ZZ Restriction of Esophagogastric Junction, Percutaneous Endoscopic Approach (ICD-10-PCS; principal; 2019-03-17 07:30)
DX: K44.9 Diaphragmatic hernia without obstruction or gangrene (principal); I50.32 Chronic diastolic (congestive) heart failure; J96.10 Chronic respiratory failure, unspecified whether with hypoxia or hypercapnia; F11.20 Opioid dependence, uncomplicated; D68.69 Other thrombophilia; K43.2 Incisional hernia without obstruction or gangrene; C02.9 Malignant neoplasm of tongue, unspecified; E78.5 Hyperlipidemia, unspecified; G89.4 Chronic pain syndrome; F32.9 Major depressive disorder, single episode, unspecified; G47.33 Obstructive sleep apnea (adult) (pediatric); I11.0 Hypertensive heart disease with heart failure; I48.91 Unspecified atrial fibrillation; I73.9 Peripheral vascular disease, unspecified; Z96.653 Presence of artificial knee joint, bilateral; K66.0 Peritoneal adhesions (postprocedural) (postinfection); Z86.711 Personal history of pulmonary embolism; Z86.718 Personal history of other venous thrombosis and embolism; Z88.8 Allergy status to other drugs, medicaments and biological substances; Z87.891 Personal history of nicotine dependence; Z90.81 Acquired absence of spleen; Z92.21 Personal history of antineoplastic chemotherapy; Z92.3 Personal history of irradiation; Z93.1 Gastrostomy status; Z99.81 Dependence on supplemental oxygen; Z98.1 Arthrodesis status; Z80.6 Family history of leukemia; Z80.3 Family history of malignant neoplasm of breast; Z82.49 Family history of ischemic heart disease and other diseases of the circulatory system
CPT/HCPCS: 36415; 80048; 80053; 85025; 94640; G0378; J0690; J1100; J1170; J1650; J2175; J2250; J2405; J2704; J3010; J7613; J7644; C9113; J0330; J7120; Q4116

== ENCOUNTER 2019-04-05 11:39 | Outpatient (CLI) | payer MEDICARE ==
[~2019-04-05 11:39] MED LIST changes: +HYDR15SO3 PO; -PRED1TAB PO; +PRED1TAB19 PO; -TIZA4TAB PO; +TIZA4TAB2 PO
[2019-04-05] MEDS ORDERED: OMNIPAQUE 350 MG/ML, 150 ML BOTTLE ONE (15:33)
== END 2019-04-05 23:59 | disposition home or self-care (01) ==
LOC: CFH 11:39
PROVIDERS: ATTEND Internal Medicine Hematology & Oncology
DX: C01 Malignant neoplasm of base of tongue (principal); K44.9 Diaphragmatic hernia without obstruction or gangrene
CPT/HCPCS: 70491; 71260; Q9967